=== PATIENT | female | born 1945 | race Two or more races ===

== ENCOUNTER → 2019-04-17 13:27 | Outpatient (CLI) | payer OTHER | END | disposition home or self-care (01) | LOC: NUCLEAR 13:27 | DX: C73 Malignant neoplasm of thyroid gland (principal); E89.0 Postprocedural hypothyroidism | CPT/HCPCS: 79005; A9517 ==

== ENCOUNTER 2019-04-21 10:55 | Outpatient (CLI) | payer OTHER | END 2019-04-21 11:00 | disposition home or self-care (01) | LOC: NUCLEAR 10:55 | DX: C73 Malignant neoplasm of thyroid gland (principal); E89.0 Postprocedural hypothyroidism ==